=== PATIENT | female | born 1980 | race Hispanic/Latino ===

== ENCOUNTER 2023-03-07 06:11 | Day surgery (SDC) | payer OTHER ==
[2023-03-07] VITALS (10 sets, daily range): BP systolic 85–112; BP diastolic 38–65
[~2023-03-07] VITALS: Ht 157.5 cm; Wt 61.2 kg
[~2023-03-07 06:11] MED LIST: ACAR25TA2 PO; ESOM40CA54 PO; FAMO40TA7 PO; FLUT16H NASAL; GABA300S3 PO; LINA290C PO; LUBI24CA9 PO; MIDO10TA PO; MONT-39 PO; ONDA4TAB10 PO; PANT40TA54 PO; SCOP1PAT11 TD; SODIUM CHLORIDE PO; VITAMIN B12 SL
[2023-03-07] MEDS ORDERED: DEXTROSE 50%-WATER 50 ML DISP.SYRIN IV ONE (06:59)
[2023-03-07] MEDS ORDERED: 0.9%NACL 1000ML 1,000 ML IV ONE (06:59)
[2023-03-07] MEDS ORDERED: PROPOFOL 10 MG/ML 20ML VIAL IV ONE ×2 (07:26)
[2023-03-07] MEDS ORDERED: LIDOCAINE HCL 1% 20 ML VIAL ONE (07:28)
== END 2023-03-07 09:17 | disposition home or self-care (01) ==
LOC: DAH 06:11 → ENDO 06:11
PROVIDERS: ATTEND Surgery
DX: K30 Functional dyspepsia (principal); Z20.822 Contact with and (suspected) exposure to COVID-19; R11.2 Nausea with vomiting, unspecified; K21.9 Gastro-esophageal reflux disease without esophagitis; K22.89 Other specified disease of esophagus; K28.9 Gastrojejunal ulcer, unspecified as acute or chronic, without hemorrhage or perforation; G43.909 Migraine, unspecified, not intractable, without status migrainosus; Z86.010 Personal history of colon polyps; Z98.890 Other specified postprocedural states; Z90.710 Acquired absence of both cervix and uterus; Z90.49 Acquired absence of other specified parts of digestive tract; Z98.891 History of uterine scar from previous surgery; Z98.84 Bariatric surgery status; Z79.899 Other long term (current) drug therapy
CPT/HCPCS: 87426; 88305; 43239; J7030 ×2; J7070; J2704 ×2; A4620; A4215 ×2; A4223; A4657; A7002; A4222; A4221; A4663; A4216; A4606

== ENCOUNTER → 2023-07-12 | Outpatient (CLI) | payer OTHER ==
[~2023-07-12] MED LIST changes: +CARAL PO; +TOPI100T37 PO; +UBRO100T PO; +VITAMIN D2 PO
== END | disposition home or self-care (01) ==
LOC: SHCH 14:29
PROVIDERS: ATTEND Internal Medicine Cardiovascular Disease
DX: R06.02 Shortness of breath (principal)
CPT/HCPCS: 93306

== ENCOUNTER 2023-07-30 15:45 | Inpatient (IN) | payer OTHER ==
[~2023-07-30] VITALS: Ht 157.5 cm; Wt 54.5 kg
[2023-07-30 17:45] LABS: HEMATOCRIT 38.9 % (36-48); MEAN CORPUSCULAR HEMOGLOBIN 30.2 pg (27.0-33.0); MEAN CORPUSCULAR HGB CONC 33.2 g/dL (32.0-36.0); MEAN CORPUSCULAR VOLUME 91.1 fL (79-99); RED BLOOD CELL COUNT(AUTO) 4.27 MIL/uL (4.00-5.50); RED CELL DISTRIBUTION WIDTH 14.1 % (11.0-15.5); WHITE BLOOD COUNT (AUTO) 8.1 K/uL (4.8-10.8)
[2023-07-30 17:46] LABS: APPEARANCE,URINE CLEAR (CLEAR); BILIRUBIN,URINE NEGATIVE (NEGATIVE); COLOR,URINE YELLOW (YELLOW); GLUCOSE, URINE (UA) NEGATIVE (NEGATIVE); KETONES,URINE NEGATIVE (NEGATIVE); LEUKOCYTE ESTERASE ,URINE NEGATIVE Leu/uL (NEGATIVE); NITRATE,URINE NEGATIVE (NEGATIVE); OCCULT BLOOD,URINE NEGATIVE (NEGATIVE); PH,URINE 6.5 (5.0-8.0); PROTEIN,URINE 10 mg/dL (NEGATIVE); UROBILINOGEN,URINE 0.2 mg/dL (0.2-1.0)
[2023-07-30 17:48] LABS: ADD UA MICROSCOPIC YES
[2023-07-30 17:49] LABS: BACTERIA,URINE RARE /HPF (None Seen); MUCUS,URINE RARE LPF (None Seen); SQUAMOUS EPITHELIAL CELL,UR FEW /HPF (0-2); WBC,URINE 0-1 /HPF (0-1)
[2023-07-30] MEDS ORDERED: 0.9%NACL 1000ML 1,000 ML IV ONE (18:00)
[2023-07-30 18:01] LABS: ALBUMIN 3.9 g/dL (3.5-5.0); BILIRUBIN,TOTAL 0.2 mg/dL (0.2-1.0); CREATININE 0.8 mg/dL (0.5-1.5); POTASSIUM 3.4 mmol/L (3.5-5.1); TOTAL PROTEIN, SERUM 7.3 g/dL (6.0-8.3)
[2023-07-30 18:08] LABS: MAGNESIUM 2.3 mg/dL (1.80-2.40); THYROID STIMULATING HORMONE 1.59 uIU/mL (0.36-3.74)
[2023-07-30] MEDS ORDERED: ACETAMINOPHEN 325 MG TAB PO PRN ×2 (20:00)
[2023-07-30] MEDS ORDERED: ONDANSETRON 4MG INJ IV PRN (20:00)
[2023-07-30] MEDS ORDERED: LACTULOSE 20 GM/30 ML UDCUP PO PRN (20:00)
[2023-07-30] MEDS: 0.9%NACL 1000ML 1,000 ML IV SCH (20:39)
[2023-07-30] MEDS: MIDODRINE HCL 5 MG TABLET PO SCH (20:39)
[2023-07-30] MEDS: FAMOTIDINE 20MG TAB PO SCH (20:39)
[2023-07-30] MEDS ORDERED: CYAN-52 PO (22:42)
[2023-07-30] MEDS ORDERED: FLUT16H NASAL (22:42)
[2023-07-30] MEDS ORDERED: LIDO1ADH82 TP (22:42)
[2023-07-30] MEDS ORDERED: CELE100C97 PO (22:42)
[2023-07-30] MEDS ORDERED: RIME75TA PO (22:42)
[2023-07-30] MEDS ORDERED: VALA100031 PO (22:42)
[2023-07-30] MEDS ORDERED: PENNSAID (22:42)
[2023-07-30] MEDS ORDERED: SODI100037 PO (22:42)
[2023-07-30] MEDS ORDERED: FAMO40TA7 PO (22:42)
[2023-07-30 23:20] VITALS: BP 85/50; PULSE 55; RESP 14
[2023-07-30 23:30] VITALS: O2SAT 98
[2023-07-31] VITALS (8 sets, daily range): BP systolic 80–99; BP diastolic 49–66; PULSE 52–66; RESP 16–18; O2SAT 98
[2023-07-31] MEDS: 0.9%NACL 1000ML 1,000 ML IV SCH ×2 (05:57→17:27)
[2023-07-31] MEDS ORDERED: KCL 20 MEQ ERTAB PO ONE (07:30)
[2023-07-31 08:22] LABS: HEMATOCRIT 32.8 % (36-48); MEAN CORPUSCULAR HEMOGLOBIN 29.9 pg (27.0-33.0); MEAN CORPUSCULAR HGB CONC 33.2 g/dL (32.0-36.0); MEAN CORPUSCULAR VOLUME 90.1 fL (79-99); RED BLOOD CELL COUNT(AUTO) 3.64 MIL/uL (4.00-5.50); RED CELL DISTRIBUTION WIDTH 14.1 % (11.0-15.5); WHITE BLOOD COUNT (AUTO) 5.8 K/uL (4.8-10.8)
[2023-07-31 08:25] LABS: CREATININE 0.5 mg/dL (0.5-1.5); POTASSIUM 3.6 mmol/L (3.5-5.1)
[2023-07-31 08:30] LABS: ALBUMIN 3.1 g/dL (3.5-5.0); BILIRUBIN,TOTAL 0.2 mg/dL (0.2-1.0); TOTAL PROTEIN, SERUM 5.7 g/dL (6.0-8.3)
[2023-07-31] MEDS: FAMOTIDINE 20MG TAB PO SCH ×2 (08:36→21:11)
[2023-07-31] MEDS: MIDODRINE HCL 5 MG TABLET PO SCH ×3 (08:36→21:11)
[2023-07-31] MEDS ORDERED: IOHEXOL-350 50ML VIAL IV ONE (08:57)
[2023-07-31] MEDS ORDERED: IOHEXOL 350 MG/ML 100ML INFUS..BTL IV ONE (08:57)
[2023-07-31] MEDS: FLUDROCORTISONE ACETATE 0.1 MG TABLET PO SCH ×2 (11:13→21:00)
[2023-08-01 03:54] VITALS: BP 96/56; PULSE 53; RESP 17
[2023-08-01 04:19] VITALS: O2SAT 98
[2023-08-01 08:00] VITALS: BP 88/47; PULSE 61; RESP 18; O2SAT 100
[2023-08-01] MEDS: FLUDROCORTISONE ACETATE 0.1 MG TABLET PO SCH ×3 (09:00→14:04)
[2023-08-01] MEDS: 0.9%NACL 1000ML 1,000 ML IV SCH ×2 (09:07→12:00)
[2023-08-01] MEDS: MIDODRINE HCL 5 MG TABLET PO SCH ×2 (10:15→14:31)
[2023-08-01] MEDS: FAMOTIDINE 20MG TAB PO SCH (10:15)
[2023-08-01 10:46] LABS: BASOPHILS # (AUTO) 0.03 K/uL (0.00-0.20); BASOPHILS % (AUTO) 0.4 % (0.0-5.0); EOSINOPHILS % (AUTO) 1.4 % (0.0-8.0); HEMATOCRIT 33.4 % (36-48); IMMATURE GRANULOCYTE ABSOLUTE 0.02 K/uL (0-1); LYMPHOCYTES # (AUTO) 1.6 K/uL (1.0-4.8); LYMPHOCYTES % (AUTO) 21.8 % (21.0-51.0); MEAN CORPUSCULAR HEMOGLOBIN 30.5 pg (27.0-33.0); MEAN CORPUSCULAR HGB CONC 33.2 g/dL (32.0-36.0); MEAN CORPUSCULAR VOLUME 91.8 fL (79-99); MONOCYTES # (AUTO) 0.5 K/uL (0.1-1.0); MONOCYTES % (AUTO) 6.1 % (3.0-13.0); NEUTROPHILS # (AUTO) 5.1 K/uL (1.8-7.7); PLATELET COUNT (AUTO) 208 K/uL (130-400); RED BLOOD CELL COUNT(AUTO) 3.64 MIL/uL (4.00-5.50); RED CELL DISTRIBUTION WIDTH 13.9 % (11.0-15.5); WHITE BLOOD COUNT (AUTO) 7.3 K/uL (4.8-10.8)
[2023-08-01 10:58] LABS: ALBUMIN 3.2 g/dL (3.5-5.0); CREATININE 0.6 mg/dL (0.5-1.5); PHOSPHORUS 3.1 mg/dL (2.5-4.9); POTASSIUM 3.7 mmol/L (3.5-5.1)
[2023-08-01 11:04] LABS: % IRON SATURATION 33.8 % (22-44)
[2023-08-01 11:23] LABS: BILIRUBIN,TOTAL 0.2 mg/dL (0.2-1.0); MAGNESIUM 1.9 mg/dL (1.80-2.40)
[2023-08-01 11:45] VITALS: BP 89/51; PULSE 60; RESP 17
[2023-08-01] MEDS ORDERED: SUCRALFATE 1 GM PO SCH (13:00)
[2023-08-01] MEDS ORDERED: FLUD.1 PO (13:48)
[2023-08-01 16:00] VITALS: BP 95/61; PULSE 69; RESP 18
[2023-08-01] MEDS ORDERED: SODIUM CHLORIDE 1,000 MG TAB PO SCH (21:00)
[2023-08-02] MEDS ORDERED: CYANOCOBALAMIN (VITAMIN B-12) 1,000 MCG TABLET PO SCH (09:00)
== END 2023-08-01 17:10 | disposition home or self-care (01) | DRG 312 ==
LOC: EDH 15:45 → DIRECT 15:46 → 4BH 22:54
PROVIDERS: ADMIT Hospitalist; ATTEND Hospitalist
DX: I95.1 Orthostatic hypotension (principal); I10 Essential (primary) hypertension; E83.51 Hypocalcemia; E87.6 Hypokalemia; I73.9 Peripheral vascular disease, unspecified; Z79.899 Other long term (current) drug therapy; Z90.710 Acquired absence of both cervix and uterus; Z83.3 Family history of diabetes mellitus; Z98.84 Bariatric surgery status; Z88.8 Allergy status to other drugs, medicaments and biological substances; Z91.040 Latex allergy status
CPT/HCPCS: 36415; 75635; 80053; 80061; 81001; 82533; 82607; 82728; 82746; 83540; 83550; 83605; 83735; 84100; 84443; 84484; 85025; 85027; 85045; 93005; G0378; J7030; Q9967

== ENCOUNTER → 2023-10-16 | Outpatient (CLI) | payer OTHER ==
[~2023-10-16] MED LIST changes: +CYAN-52 PO; +DICY20TA3 PO; +ESOM40CA PO; -FAMO40TA7 PO; -FLUT16H NASAL; -GABA300S3 PO; +GLUC1VIA14 IJ; +LID5O TP; -LINA290C PO; -LUBI24CA9 PO; -MONT-39 PO; -SODIUM CHLORIDE PO; -UBRO100T PO; -VITAMIN B12 SL; -VITAMIN D2 PO; +[UNRECOGNIZED DRUG - OTHER] JT
[2023-10-16 11:30] LABS: BASOPHILS # (AUTO) 0.04 K/uL (0.00-0.20); BASOPHILS % (AUTO) 0.6 % (0.0-5.0); EOSINOPHILS % (AUTO) 2.9 % (0.0-8.0); HEMATOCRIT 31.5 % (36-48); IMMATURE GRANULOCYTE ABSOLUTE 0.03 K/uL (0-1); LYMPHOCYTES # (AUTO) 1.9 K/uL (1.0-4.8); LYMPHOCYTES % (AUTO) 27.1 % (21.0-51.0); MEAN CORPUSCULAR HEMOGLOBIN 29.7 pg (27.0-33.0); MEAN CORPUSCULAR HGB CONC 32.4 g/dL (32.0-36.0); MEAN CORPUSCULAR VOLUME 91.8 fL (79-99); MONOCYTES # (AUTO) 0.4 K/uL (0.1-1.0); MONOCYTES % (AUTO) 5.7 % (3.0-13.0); NEUTROPHILS # (AUTO) 4.4 K/uL (1.8-7.7); NEUTROPHILS % (AUTO) 63.3 % (40.0-77.0); PLATELET COUNT (AUTO) 394 K/uL (130-400); RED BLOOD CELL COUNT(AUTO) 3.43 MIL/uL (4.00-5.50); RED CELL DISTRIBUTION WIDTH 15.4 % (11.0-15.5)
[2023-10-16 12:24] LABS: ALBUMIN 3.2 g/dL (3.5-5.0); BILIRUBIN,TOTAL 0.3 mg/dL (0.2-1.0); CREATININE 0.6 mg/dL (0.5-1.5); POTASSIUM 3.7 mmol/L (3.5-5.1); THYROID STIMULATING HORMONE 1.2 uIU/mL (0.36-3.74); TOTAL PROTEIN, SERUM 6.7 g/dL (6.0-8.3)
== END | disposition home or self-care (01) ==
LOC: RAH 10:21
PROVIDERS: ATTEND Internal Medicine Gastroenterology
DX: E43 Unspecified severe protein-calorie malnutrition (principal); K91.1 Postgastric surgery syndromes; K28.3 Acute gastrojejunal ulcer without hemorrhage or perforation; R11.0 Nausea; Z98.84 Bariatric surgery status; Z79.899 Other long term (current) drug therapy
CPT/HCPCS: 36415; 74018; 80050; 80053; 80061; 82306; 82607; 82728; 82746; 83036; 83540; 83550; 84439; 84443; 84590; 85025

== ENCOUNTER 2023-10-18 06:36 | Day surgery (SDC) | payer OTHER ==
[~2023-10-18] VITALS: Ht 157.5 cm; Wt 54.4 kg
[2023-10-18] VITALS (17 sets, daily range): BP systolic 83–115; BP diastolic 41–69; PULSE 60–72; RESP 12–16
[~2023-10-18 06:36] MED LIST changes: -ESOM40CA54 PO
[2023-10-18] MEDS ORDERED: PROPOFOL 10 MG/ML 20ML VIAL IV ONE (07:29)
[2023-10-18] MEDS ORDERED: LIDOCAINE PF 100MG/5ML (2%) SYRINGE 5ML ONE (07:29)
[2023-10-18] MEDS ORDERED: SUCCINYLCHOLINE 200MG/10ML SYR ONE (07:29)
[2023-10-18] MEDS ORDERED: MIDAZOLAM HCL 1 MG/ML 2ML VIAL ONE (08:26)
[2023-10-18] MEDS ORDERED: FENTANYL CITRATE PF 50 MCG/1 ML 2ML VIAL ONE (08:28)
[2023-10-18] MEDS ORDERED: EPHEDRINE SULFATE 50 MG/ML AMPULE ONE (08:54)
== END 2023-10-18 10:25 | disposition home or self-care (01) ==
LOC: ENDO 06:36 → DAH 06:36 → ENDO 10:25
PROVIDERS: ATTEND Internal Medicine Gastroenterology
DX: R10.84 Generalized abdominal pain (principal); K22.89 Other specified disease of esophagus; K31.89 Other diseases of stomach and duodenum; E43 Unspecified severe protein-calorie malnutrition; R11.0 Nausea; K28.3 Acute gastrojejunal ulcer without hemorrhage or perforation; K91.1 Postgastric surgery syndromes; Z83.3 Family history of diabetes mellitus; Z80.1 Family history of malignant neoplasm of trachea, bronchus and lung; Z88.8 Allergy status to other drugs, medicaments and biological substances; Z87.891 Personal history of nicotine dependence; Z98.84 Bariatric surgery status; Z91.040 Latex allergy status; Z91.048 Other nonmedicinal substance allergy status; Z90.49 Acquired absence of other specified parts of digestive tract; Z90.710 Acquired absence of both cervix and uterus; Z98.891 History of uterine scar from previous surgery; Z98.890 Other specified postprocedural states
CPT/HCPCS: 82948 ×2; 43235; J3010; J0330; J2001; J3490; J2250; J2704; A4620; A4215 ×2; A4223; A7002; A4222; A4221; A4663; A4216; J7030; A4606

== ENCOUNTER 2024-07-10 05:45 | Day surgery (SDC) | payer OTHER ==
[2024-07-10] VITALS (12 sets, daily range): BP systolic 88–104; BP diastolic 55–64; PULSE 57–66; RESP 16
[~2024-07-10] VITALS: Ht 157.5 cm; Wt 54.0 kg
[~2024-07-10 05:45] MED LIST changes: +0.9%NACL 1000ML 0 ML IV ONE; +ONDA-243 PO; -ONDA4TAB10 PO
[2024-07-10] MEDS ORDERED: FAMO40TA7 PO (06:51)
[2024-07-10] MEDS ORDERED: MIDODRINE PO (06:51)
[2024-07-10] MEDS ORDERED: AMYL1CAP61 PO (06:51)
[2024-07-10] MEDS ORDERED: ACAR100T2 PO (06:52)
[2024-07-10] MEDS: 0.9%NACL 1000ML 1,000 ML IV ONE (06:59)
[2024-07-10] MEDS ORDERED: LIDOCAINE PF 100MG/5ML (2%) SYRINGE 5ML ONE (07:33)
[2024-07-10] MEDS ORDERED: PHENYLEPHRINE HCL 10 MG/ML 1ML VIAL IV ONE (07:33)
[2024-07-10] MEDS ORDERED: proPOFol 10 MG/ML 20ML VIAL IV ONE (07:33)
[2024-07-10] MEDS ORDERED: ONDANSETRON 4MG INJ ONE (07:58)
[2024-07-10] MEDS ORDERED: dexaMETHasone SOD PHOSPHATE 10MG/ML 1ML VIAL ONE (07:58)
== END 2024-07-10 09:10 | disposition home or self-care (01) ==
LOC: ENDO 05:45 → DAH 05:45 → ENDO 09:10
PROVIDERS: ATTEND Surgery
DX: R10.13 Epigastric pain (principal); K22.89 Other specified disease of esophagus; E43 Unspecified severe protein-calorie malnutrition; K28.3 Acute gastrojejunal ulcer without hemorrhage or perforation; K21.9 Gastro-esophageal reflux disease without esophagitis; G43.909 Migraine, unspecified, not intractable, without status migrainosus; Z98.0 Intestinal bypass and anastomosis status; Z91.040 Latex allergy status; Z90.49 Acquired absence of other specified parts of digestive tract; Z90.710 Acquired absence of both cervix and uterus; Z98.84 Bariatric surgery status; Z88.1 Allergy status to other antibiotic agents; Z88.8 Allergy status to other drugs, medicaments and biological substances
CPT/HCPCS: 43235; J1100; J7030 ×2; J2001; J2704; J2405; J2371; A4620; A4215 ×2; A4223; A4657; A4222; A4221; A4663; A4606; J3490

== ENCOUNTER → 2024-07-18 | Outpatient (CLI) | payer OTHER ==
[~2024-07-18] MED LIST changes: -0.9%NACL 1000ML 0 ML IV ONE; +ACAR100T2 PO; -ACAR25TA2 PO; +AMYL1CAP61 PO; -CYAN-52 PO; -DICY20TA3 PO; -ESOM40CA PO; +FAMO40TA7 PO; -GLUC1VIA14 IJ; -LID5O TP; -MIDO10TA PO; +MIDODRINE PO; -SCOP1PAT11 TD; -TOPI100T37 PO; -[UNRECOGNIZED DRUG - OTHER] JT
== END | disposition home or self-care (01) ==
LOC: RAH 16:56
PROVIDERS: ATTEND Surgery
DX: M79.621 Pain in right upper arm (principal)
CPT/HCPCS: 93970

== ENCOUNTER 2024-07-23 16:00 | Inpatient (IN) | payer OTHER ==
[~2024-07-23] VITALS: Ht 157.5 cm; Wt 56.2 kg
[2024-07-23 14:43] LABS: BASOPHILS # (AUTO) 0.04 K/uL (0.00-0.20); BASOPHILS % (AUTO) 0.4 % (0.0-5.0); EOSINOPHILS # (AUTO) 0.12 K/uL (0.00-0.70); EOSINOPHILS % (AUTO) 1.2 % (0.0-8.0); HEMATOCRIT 32.2 % (36-48); IMMATURE GRANULOCYTE ABSOLUTE 0.03 K/uL (0-1); LYMPHOCYTES # (AUTO) 2.8 K/uL (1.0-4.8); LYMPHOCYTES % (AUTO) 28.7 % (21.0-51.0); MEAN CORPUSCULAR HEMOGLOBIN 25.9 pg (27.0-33.0); MEAN CORPUSCULAR VOLUME 80.9 fL (79-99); MONOCYTES # (AUTO) 0.5 K/uL (0.1-1.0); MONOCYTES % (AUTO) 5.2 % (3.0-13.0); NEUTROPHILS # (AUTO) 6.3 K/uL (1.8-7.7); NEUTROPHILS % (AUTO) 64.2 % (40.0-77.0); PLATELET COUNT (AUTO) 328 K/uL (130-400); RED BLOOD CELL COUNT(AUTO) 3.98 MIL/uL (4.00-5.50); RED CELL DISTRIBUTION WIDTH 17.2 % (11.0-15.5); WHITE BLOOD COUNT (AUTO) 9.8 K/uL (4.8-10.8)
[2024-07-23 15:03] LABS: INR 0.98 (0.85-1.15); PROTHROMBIN TIME 10.6 SEC (9.6-11.6)
[2024-07-23 15:04] LABS: PARTIAL THROMBOPLASTIN TIME 26.4 SEC (26.3-35.5)
[2024-07-23 15:09] LABS: ALBUMIN 3.8 g/dL (3.5-5.0); BILIRUBIN,TOTAL 0.3 mg/dL (0.2-1.0); CREATININE 0.7 mg/dL (0.5-1.0); POTASSIUM 3.7 mmol/L (3.5-5.1); TOTAL PROTEIN, SERUM 7.4 g/dL (6.0-8.3)
[2024-07-23 15:25] VITALS: BP 103/55; PULSE 62; RESP 18; TEMP 98.4
[~2024-07-23 16:00] MED LIST changes: +LIDO15CR11 TP; +NACL1 PO; +SCOP1PAT11 TD
[2024-07-24] VITALS (12 sets, daily range): BP systolic 97–129; BP diastolic 52–75; PULSE 62–67; RESP 14–16; TEMP 97.3–98.2
[2024-07-24] MEDS: metRONIDazole 500MG/100ML BAG 0 ML ONE (13:21)
[2024-07-24] MEDS: ceFAZolin SODIUM 2 GM VIAL ONE (13:21)
[2024-07-24] MEDS: DEXTROSE 50%-WATER 50 ML DISP.SYRIN IV ONE (14:15)
[2024-07-24] MEDS: FAMOTIDINE 20MG VIAL IV ONE (14:15)
[2024-07-24] MEDS: ONDANSETRON 4MG INJ ONE (19:14)
[2024-07-24] MEDS: SCOPOLAMINE HYDROBROMIDE 1 EACH ADH..PATCH TD ONE (19:14)
[2024-07-24] MEDS: acetaMINOPHEN 1,000 MG/100 ML VIAL IV ONE (19:14)
[2024-07-24] MEDS: LACTATED RINGERS 1000ML 1,000 ML IV ONE (19:15)
[2024-07-24] MEDS ORDERED: dexaMETHasone SOD PHOSPHATE 10MG/ML 1ML VIAL ONE (19:35)
[2024-07-24] MEDS ORDERED: LIDOCAINE HCL MPF 1% 5ML VIAL ONE (19:35)
[2024-07-24] MEDS ORDERED: NEOSTIGMINE METHYLSULFATE 1MG/ML IV ONE (19:36)
[2024-07-24] MEDS ORDERED: rocuRONium bROMide 10MG/1ML 5ML VL ONE (19:36)
[2024-07-24] MEDS ORDERED: ONDANSETRON 4MG INJ ONE (19:36)
[2024-07-24] MEDS ORDERED: proPOFol 10 MG/ML 20ML VIAL IV ONE (19:36)
[2024-07-24] MEDS ORDERED: GLYCOPYRROLATE 0.2 MG/ML 5 ML VIAL ONE ×2 (19:36→22:47)
[2024-07-24] MEDS ORDERED: MIDAZOLAM HCL 1 MG/ML 2ML VIAL ONE (19:36)
[2024-07-24] MEDS ORDERED: FENTanyl CITRate PF 50 MCG/1 ML 5ML AMP IV ONE (19:37)
[2024-07-24] MEDS ORDERED: PHENYLEPHRINE HCL 10 MG/ML 1ML VIAL IV ONE (21:06)
[2024-07-24] MEDS: BUPIvacaine/PF 0.5% 30ML VIAL ONE (21:19)
[2024-07-24] MEDS: CLINDAMYCIN IVPB 600MG/50ML 50 ML IV ONE (21:20)
[2024-07-24] MEDS ORDERED: morPHINE 4 MG SYG IVP PRN (23:30)
[2024-07-24] MEDS ORDERED: ONDANSETRON 4MG INJ IVP PRN (23:30)
[2024-07-24] MEDS ORDERED: PROCHLORPERAZINE 10MG/2ML INJ IV PRN (23:30)
[2024-07-25] VITALS (15 sets, daily range): BP systolic 94–130; BP diastolic 53–69; PULSE 52–68; RESP 13–19; TEMP 98.1–98.6; O2SAT 97
[2024-07-25] MEDS: ketOROlac 30MG VIAL (30MG/ML) IV PRN (00:50)
[2024-07-25] MEDS: TPN IJ SCH (01:14)
[2024-07-25] MEDS: ENOXAPARIN SODIUM 30 MG/0.3 ML SQ SCH (01:17)
[2024-07-25] MEDS: HYDROcod/acetaMINOPHEN 7.5/325 MG 15 ML UDCUP PO PRN (05:37)
== END 2024-07-25 18:55 | disposition home or self-care (01) | DRG 329 ==
LOC: DAHIP 07-24 11:48 → 3CH 07-24 23:40
PROVIDERS: ADMIT Surgery; ATTEND Surgery
PROC: 8E0W4CZ Robotic Assisted Procedure of Trunk Region, Percutaneous Endoscopic Approach (ICD-10-PCS; 2024-07-24)
PROC: 0DJ08ZZ Inspection of Upper Intestinal Tract, Via Natural or Artificial Opening Endoscopic (ICD-10-PCS; principal; 2024-07-24 20:43)
PROC: 0DB84ZZ Excision of Small Intestine, Percutaneous Endoscopic Approach (ICD-10-PCS; 2024-07-24 20:43)
DX: K28.3 Acute gastrojejunal ulcer without hemorrhage or perforation (principal); E43 Unspecified severe protein-calorie malnutrition; K31.84 Gastroparesis; Z98.84 Bariatric surgery status; Z87.11 Personal history of peptic ulcer disease; Z68.22 Body mass index [BMI] 22.0-22.9, adult
CPT/HCPCS: 36415; 43235; 71045; 80053; 82306; 82607; 82948; 84207; 84703; 85025; 85610; 85730; 86850; 86900; 86901; 88307; 93005; G0378; J1100; J1650; J1885; J2250; J2371; J2405; J2704; J2710; J3010; J3490; J7030; J7070; J7120; A4215; A4216; A4222; A4223; A4600; A4663; A4930; A6260; J0665; J0690

== ENCOUNTER 2024-10-24 23:58 | Emergency (ER) | payer OTHER ==
[~2024-10-24] VITALS: Ht 157.5 cm; Wt 54.4 kg
[~2024-10-24 23:58] MED LIST changes: -LIDO15CR11 TP; +LIDO15CR15 TP
[2024-10-25] VITALS: BP 103/70; PULSE 77; RESP 11; TEMP 97.4
[2024-10-25 02:22] LABS: BASOPHILS # (AUTO) 0.05 K/uL (0.00-0.20); BASOPHILS % (AUTO) 0.4 % (0.0-5.0); EOSINOPHILS # (AUTO) 0.27 K/uL (0.00-0.70); EOSINOPHILS % (AUTO) 2.3 % (0.0-8.0); HEMATOCRIT 32.3 % (36-48); IMMATURE GRANULOCYTE ABSOLUTE 0.05 K/uL (0-1); LYMPHOCYTES # (AUTO) 3.3 K/uL (1.0-4.8); LYMPHOCYTES % (AUTO) 28.3 % (21.0-51.0); MEAN CORPUSCULAR HEMOGLOBIN 24.9 pg (27.0-33.0); MEAN CORPUSCULAR HGB CONC 31.9 g/dL (32.0-36.0); MONOCYTES # (AUTO) 0.9 K/uL (0.1-1.0); MONOCYTES % (AUTO) 7.3 % (3.0-13.0); NEUTROPHILS # (AUTO) 7.2 K/uL (1.8-7.7); NEUTROPHILS % (AUTO) 61.3 % (40.0-77.0); PLATELET COUNT (AUTO) 356 K/uL (130-400); RED BLOOD CELL COUNT(AUTO) 4.14 MIL/uL (4.00-5.50); WHITE BLOOD COUNT (AUTO) 11.7 K/uL (4.8-10.8)
[2024-10-25 02:32] LABS: CREATININE 0.8 mg/dL (0.5-1.0); POTASSIUM 3.4 mmol/L (3.5-5.1)
[2024-10-25] MEDS: FAMOTIDINE 20MG VIAL IV ONE (02:32)
[2024-10-25] MEDS: ketOROlac 15MG/ML VIAL (15MG/ML) IV ONE (02:32)
[2024-10-25] MEDS: ondanSETRON 4MG INJ IVP ONE (02:33)
[2024-10-25 02:37] LABS: ALBUMIN 3.8 g/dL (3.5-5.0); BILIRUBIN,DIRECT 0.1 mg/dL (0.0-0.3); BILIRUBIN,TOTAL 0.2 mg/dL (0.2-1.0); TOTAL PROTEIN, SERUM 7.6 g/dL (6.0-8.3)
[2024-10-25] MEDS: 0.9%NACL 1000ML 1,000 ML IV ONE (02:40)
[2024-10-25 02:43] LABS: APPEARANCE,URINE CLEAR (CLEAR); BILIRUBIN,URINE NEGATIVE (NEGATIVE); COLOR,URINE LIGHT-YELLOW (YELLOW); GLUCOSE, URINE (UA) NEGATIVE (NEGATIVE); KETONES,URINE 10 mg/dL (NEGATIVE); LEUKOCYTE ESTERASE ,URINE NEGATIVE Leu/uL (NEGATIVE); NITRATE,URINE NEGATIVE (NEGATIVE); OCCULT BLOOD,URINE NEGATIVE (NEGATIVE); PH,URINE 6.5 (5.0-8.0); PROTEIN,URINE NEGATIVE (NEGATIVE); UROBILINOGEN,URINE 0.2 mg/dL (0.2-1.0)
[2024-10-25 02:44] LABS: ADD UA MICROSCOPIC YES
[2024-10-25 02:45] LABS: MUCUS,URINE RARE LPF (None Seen); RBC,URINE 0-1 /HPF (0-1); SQUAMOUS EPITHELIAL CELL,UR RARE /HPF (0-2); WBC,URINE 0-1 /HPF (0-1)
[2024-10-25] MEDS ORDERED: IOHEXOL-350 75 ML VIAL IV ONE (02:45)
[2024-10-25 03:07] LABS: PLATELET MORPHOLOGY LARGE PLTS PRESENT
--- NOTE | 2024-10-25 03:36 | ERN ---
General Chief Complaint: Abdominal Pain Stated Complaint: ABDOMINAL PAIN Time Seen by MD: 00:12 Time Seen by Midlevel: 00:12 Source: patient History of Present Illness Initial Comments Patient is a 44-year-old female with a past medical history of pancreatitis and small-bowel obstructions presenting to the emergency department with midepigastric/left quadrant abdominal pain that started four days ago and has progressively worsened. She reports associated nausea and vomiting with last reported episode of vomiting occurring prior to arrival. She denies any fever, chills or any other symptoms at this time. Allergies: Coded Allergies: eletriptan (Unverified Allergy, Unknown, 03/06/23) latex (Unverified Allergy, Unknown, 03/06/23) metronidazole (Unverified Allergy, Unknown, 03/06/23) sumatriptan (Unverified Allergy, Unknown, 10/17/23) Uncoded Allergies: DERMABOND (Allergy, Unknown, 03/06/23) Home Meds Reported Medications Sodium Chloride (NaCl) 1,000 Mg Tab, 1 GM PO QID, TAB 07/23/24 Lidocaine (Lidocaine) 5 % Cream..g., 1 APPLIC TP QID APPLY TO ABDOMEN 07/23/24 Scopolamine (Transderm-Scop) 1 Mg/3 Day Patch.td.3, 1 EACH TD QODAY 07/23/24 Acarbose (Acarbose) 100 Mg Tablet, 100 MG PO TID, TAB 07/10/24 Famotidine (Famotidine) 40 Mg Tablet, 40 MG PO BID, TAB 07/10/24 [Midodrine] No Conflict Check, 20 MG PO TID 07/10/24 Lipase/Protease/Amylase (Creon) 12K-38K-60 Drcap, 1 CAP PO TID, CAP 07/10/24 Sucralfate (Carafate Susp) 1 Gram/10 Ml Susp, 1 GM PO QID, ML 06/06/23 Ondansetron (Ondansetron Odt) 4 Mg Tab.rapdis, 4 MG PO TID PRN for NAUSEA/VOMITING, TAB 03/06/23 Pantoprazole Sodium (Pantoprazole Sodium) 40 Mg Tablet.dr, 40 MG PO BID, TAB 03/06/23 Past Medical History Past Medical History: GERD, Hypotension, Migraines Medical History Other: HYPOGLYCEMIA Past Surgical History: Appendectomy, Hysterectomy, Cholecystectomy, Bariatric Surgery, Surgical History Other: CRANIOTOMY Social History Social History: Negative, Lives with family ROS Dictation CONSTITUTIONAL: Negative except for HPI HEAD/FACE: Negative except for HPI EENT: Negative except for HPI RESPIRATORY: Negative except for HPI GASTROINTESTINAL/ABDOMINAL: Negative except for HPI GENITOURINARY: Negative except for HPI MUSCULOSKELETAL: Negative except for HPI INTEGUMENTARY: Negative except for HPI NEUROLOGICAL/PSYCH: Negative except for HPI HEMATOLOGIC/LYMPHATIC: Negative except for HPI All Systems Negative, Except as noted above. 13 point review of systems assessed and all negative except for above. Physical Exam Physical Exam Dictation Vital Signs reviewed General Appearance: Alert, oriented x 3, no acute distress, well developed, nourished. Head and Face: non-traumatic. Eyes: PERRL, pink conjunctivas, eyelid no trauma, anterior chamber with arcus senilis. Ears: Pinnas intact and no signs of trauma or erythema ear canals clear and no discharge TM no erythema Nose: No discharge, no bleeding. Oropharynx: Mouth normal, tongue pink, pharynx clear,no erythema, tonsils no exudates, no abscesses noted, mucous membrane moist Neck: Supple, non-tender, no thyromegaly, no masses, no JVD, no bruits Breast:Deferred Chest:No tenderness, no crepitus, no paradoxical movement, no retractions Lungs:Clear, well-ventilated, symmetric, no rales, no wheezing, no rhonchi, no stridor, good breath sounds bilaterally Heart: Regular rate, regular rhythm, no murmur, no gallops Vascular: no peripheral edema, Abdomen: Soft, positive bowel sounds, nondistended, no guarding, Diffuse abdominal tenderness, no rebound, no masses no hepatomegaly, no splenomegaly, no Jeffery's sign, no hernias. Rectal: Deferred Genital: Deferred Neurological: Normal speech, motor function intact, sensory function intact Musculoskeletal: Neck nontender, full range of motion, back nontender, full range of motion, Extremities: nontender, full range of motion Skin: Color pink, dry, no turgor, no rash, no lacerations, no abrasions, no contusions. Lymphatic: Deferred Results Laboratory and Microbiology Lab and Micro Result Laboratory Tests Test 10/25/24 02:14 10/25/24 02:28 White Blood Count 11.7 K/uL (4.8-10.8) H Red Blood Count 4.14 MIL/uL (4.00-5.50) Hemoglobin 10.3 g/dL (12.0-16.0) L Hematocrit 32.3 % (36-48) L Mean Corpuscular Volume 78.0 fL (79-99) L Mean Corpuscular Hemoglobin 24.9 pg (27.0-33.0) L Mean Corpuscular Hemoglobin Concent 31.9 g/dL (32.0-36.0) L Red Cell Distribution Width 16.0 % (11.0-15.5) H Platelet Count 356 K/uL (130-400) Mean Platelet Volume 10.5 fL (7.5-10.5) Immature Granulocyte % (Auto) 0.4 % (0-1) Neutrophils (%) (Auto) 61.3 % (40.0-77.0) Lymphocytes (%) (Auto) 28.3 % (21.0-51.0) Monocytes (%) (Auto) 7.3 % (3.0-13.0) Eosinophils (%) (Auto) 2.3 % (0.0-8.0) Basophils (%) (Auto) 0.4 % (0.0-5.0) Neutrophils # (Auto) 7.2 K/uL (1.8-7.7) Lymphocytes # (Auto) 3.3 K/uL (1.0-4.8) Monocytes # (Auto) 0.9 K/uL (0.1-1.0) Eosinophils # (Auto) 0.27 K/uL (0.00-0.70) Basophils # (Auto) 0.05 K/uL (0.00-0.20) Absolute Immature Granulocyte (auto 0.05 K/uL (0-1) Nucleated Red Blood Cells 0.0 % (0.0-0.19) Platelet Morphology LARGE PLTS PRESENT Red Blood Cell Morphology ANISO 1+ Sodium Level 138 mmol/L (136-145) Potassium Level 3.4 mmol/L (3.5-5.1) L Chloride Level 106 mmol/L (101-111) Carbon Dioxide Level 26 mmol/L (21-32) Blood Urea Nitrogen 13 mg/dL (7-18) Creatinine 0.8 mg/dL (0.5-1.0) Glomerular Filtration Rate Calc 93 mL/min (>90) Random Glucose 94 mg/dL (70-105) Total Calcium 8.9 mg/dL (8.5-10.1) Total Bilirubin 0.2 mg/dL (0.2-1.0) Direct Bilirubin 0.1 mg/dL (0.0-0.3) Aspartate Amino Transf (AST/SGOT) 14 U/L (10-37) Alanine Aminotransferase (ALT/SGPT) 21 U/L (12-78) Alkaline Phosphatase 92 U/L (50-136) Total Protein 7.6 g/dL (6.0-8.3) Albumin 3.8 g/dL (3.5-5.0) Lipase 79 U/L (16-77) H Serum Test, Qualitative NEGATIVE (NEGATIVE) Urine Color LIGHT-YELLOW (YELLOW) Urine Appearance CLEAR (CLEAR) Urine pH 6.5 (5.0-8.0) Urine Specific Allen 1.013 (1.001-1.031) Urine Protein NEGATIVE mg/dL (NEGATIVE) Urine Glucose (UA) NEGATIVE mg/dL (NEGATIVE) Urine Ketones 10 mg/dL (NEGATIVE) H Urine Occult Blood NEGATIVE (NEGATIVE) Urine Nitrate NEGATIVE (NEGATIVE) Urine Bilirubin NEGATIVE mg/dL (NEGATIVE) Urine Urobilinogen 0.2 mg/dL (0.2-1.0) Urine Leukocyte Esterase NEGATIVE Christina/uL Urine RBC 0-1 /HPF (0-1) Urine WBC 0-1 /HPF (0-1) Urine Squamous Epithelial Cells RARE /HPF (0-2) Urine Bacteria None /HPF (None Seen) Labs Reviewed?: Yes MDM MDM: Differential diagnosis: Pancreatitis, small-bowel obstruction, paralytic ileus Rationale: Tests considered and ordered secondary to shared decision making include: Previous outside records reviewed: Old ER visits. Risk of complication and/or morbidity or mortality of patient management: None Medications-Per medication reconciliation Need for hospitalization: Patient does meet criteria for hospitalization. Need for emergency major/minor surgery: No There are no social concerns with this patient. Prescription drug management Prescriptions will include symptomatic care Patient's prior external medical records from other ER visits were reviewed by me as indicated. Prior testing and results from previous visits were reviewed. Prior tests were taken into account with medical decision making and resource utilization, independent historian/historians were used to obtain complete medical history. I independently interpreted the test that were performed, results were reviewed by me and considered findings on radiology if ordered. Medical management and examination interpretation discussions were had by me with other qualified healthcare professionals as indicated for the patient's care. ED Course Orders Procedure Category Date Status Time Cbc With Differential LAB 10/25/24 Complete 00:17 Basic Metabolic Panel LAB 10/25/24 Complete 00:17 Testing, LAB 10/25/24 Complete Serum Hcg 00:17 Hepatic Function Panel LAB 10/25/24 Complete 00:17 Lipase LAB 10/25/24 Complete 00:17 Urinalysis Profile LAB 10/25/24 Complete 00:17 Ondansetron 4mg Inj PHA 10/25/24 Complete (Zofran 4mg Inj) 02:00 Famotidine 20mg Vial PHA 10/25/24 Complete (Pepcid 20mg Vial) 02:00 Ketorolac PHA 10/25/24 Complete Tromethamine 15mg/Ml 02:00 0.9%Nacl 1000ml (Ns PHA 10/25/24 Complete 1000ml) 02:00 Ct Abdomen/Pelvis CT 10/25/24 Taken W/Contrast 01:47 Iohexol (Omnipaque) PHA 10/25/24 Complete 02:45 Current Medications Medications (Trade) Dose Ordered Sig/Teofilo Route PRN Reason Start Time Stop Time Status Last Admin Dose Admin Famotidine (Pepcid 20mg Vial) 20 mg ONCE ONCE IV 10/25/24 02:00 10/25/24 02:01 DC 10/25/24 02:32 Iohexol (Omnipaque) 75 ml STK-MED ONCE IV 10/25/24 02:45 10/25/24 02:45 DC Ketorolac Tromethamine (toRADol) 15 mg ONCE ONCE IV 10/25/24 02:00 10/25/24 02:01 DC 10/25/24 02:32 Ondansetron HCl (zoFRAN 4MG INJ) 4 mg ONCE ONCE IVP 10/25/24 02:00 10/25/24 02:01 DC 10/25/24 02:33 Sodium Chloride 1,000 ml @ 0 mls/hr ONCE ONCE IV 10/25/24 02:00 10/25/24 02:01 DC 10/25/24 02:40 Vital Signs Date Time Temp Pulse Resp B/P (MAP) Pulse Ox O2 Delivery O2 Flow Rate FiO2 10/25/24 00:00 97.3 77 11 103/70 100 Room Air [address] abdomen and pelvis with contrast. Preliminary findings. There are postoperative changes involving the bowel. The colon is distending containing air and stool. There are some mildly distended loops of small bowel containing fluid and air. Some of these demonstrate wall thickening. This may be related to an ileus. Can not exclude a nonspecific enteritis. No bowel obstruction is identified. Patient is status post cholecystectomy. No evidence of renal calculi or hydronephrosis. A 9 mm lucency in the right lobe of the liver may represent a cyst. DX & DISP Disposition: Inpatient Decision to Admit Date: Oct 25, 2024 Decision to Admit Time: 04:18 Departure Impression: Primary Impression: Ileus Additional Impression: Leukocytosis Condition: Stable Referrals: JACE ALFORD (PCP) Time of Disposition: 04:18 I have reviewed the case, and I agree with, Diagnosis and Plan I performed the substantive portion of the visit. I have reviewed and personally made and approve the management plan that is documented in the note by myself or the MENG. I acknowledge for responsibility for the patient's management plan. ARIC ARMAS Oct 25, 2024 03:36
--- NOTE | 2024-10-25 05:29 | NUR ---
PT UPSET, YELLING AT STAFF BECAUSE NO ONE HAD TOLD THEM SHE WAS GETTING ADMITTED OR UPDATED THEM ON ANY LAB RESULTS. PT WANTING TO SPEAK TO REGULATORY COMPLIANCE OFFICER OR ED DIRECTOR. EXPLAINED TO PT AND FAMILY THAT ED DIRECTOR ISNT AVAILABLE AT THIS TIME. PT RECEIVED DIRECTOR'S CARD, TOLD PT AND FAMILY THEY CAN CALL DIRECTOR FOR ANY COMPLAINTS. PT REQUESTING TO LEAVE AMA. EXPLAINED TO PT AND FAMILY MEMBER THE RISKS OF LEAVING AMA. PT SIGNED AMA FORM.
--- NOTE | 2024-10-25 08:24 | HMCIMG ---
CT ABDOMEN WITH CONTRAST. CT PELVIS WITH CONTRAST INDICATION: History of pancreatitis/small bowel obstruction, mid epigastric abdominal pain with nausea TECHNIQUE: Routine transaxial images using 5 mm slice thickness were obtained after the intravenous infusion of 75 mL of Omnipaque 350 without adverse effects. Oral contrast was not administered. Rectal contrast was not administered. Coronal and sagittal reformatted images acquired for interpretation. CT was performed with one or more of the following dose reduction techniques: Automated exposure control, adjustment of the mA and/or kV according to patient size, or use of iterative reconstruction technique. COMPARISON: None FINDINGS: ABDOMEN: Heart size is normal. Visible lung bases are clear. Gastric bypass surgery changes. The liver is normal in size and smooth in contour without lesions or biliary duct dilation. 9 mm low attenuating lesion within the posterior superior right hepatic lobe may represent a simple cyst, but is too small to characterize at this juncture. The spleen is normal in size without lesions. The gallbladder is absent. The pancreas appears normal without pancreatic duct dilation. The adrenal glands appear normal. Both kidneys appear unremarkable. Cortical nephrograms are symmetric and normal in appearance bilaterally. No evidence for intra-abdominal free air or organized fluid collection. No retrocrural, intraabdominal, or retroperitoneal lymphadenopathy identified. No aortic aneurysmal dilation or dissection identified. PELVIS: No evidence for free air or organized pelvic fluid collection. No significant pelvic adenopathy detected. Moderate stool burden. Fluid-filled nondilated small bowel loops. Terminal ileum appears normal. The appendix it is not well-visualized. The urinary bladder appears unremarkable. Uterus is absent. Multiple pelvic phleboliths. Visible osseous structures are intact. IMPRESSION: No evidence for any acute intra-abdominal or pelvic process. Additional minor findings and pertinent negatives as reported.
== END 2024-10-25 05:49 | disposition left against medical advice (07) ==
LOC: EDH 23:58
DX: K56.7 Ileus, unspecified (principal); D72.829 Elevated white blood cell count, unspecified; K21.9 Gastro-esophageal reflux disease without esophagitis; G43.909 Migraine, unspecified, not intractable, without status migrainosus; Z88.1 Allergy status to other antibiotic agents; Z90.49 Acquired absence of other specified parts of digestive tract; Z90.710 Acquired absence of both cervix and uterus; Z98.890 Other specified postprocedural states
CPT/HCPCS: 99285; 80076; 80048; 84703; 83690; 85025; 81001; 36415; 74177; 96374; 96375; 96361; J3490; J7030; J2405; J1885; Q9967

== ENCOUNTER 2025-09-24 07:01 | Day surgery (SDC) | payer OTHER ==
[~2025-09-24] VITALS: Ht 157.5 cm; Wt 59.9 kg
[2025-09-24] VITALS (10 sets, daily range): BP systolic 94–101; BP diastolic 52–63; PULSE 65–78; RESP 15–18; TEMP 97.3–97.9
[~2025-09-24 07:01] MED LIST changes: +0.9%NACL 1000ML 1,000 ML IV ONE
[2025-09-24] MEDS ORDERED: ONDA-105 PO (07:27)
[2025-09-24] MEDS ORDERED: DROX100C2 PO (07:30)
[2025-09-24] MEDS ORDERED: LIDOCAINE PF 100MG/5ML (2%) SYRINGE 5ML ONE (07:37)
[2025-09-24] MEDS ORDERED: GLYCOPYRROLATE 0.2 MG/ML 5 ML VIAL ONE (07:37)
== END 2025-09-24 10:30 | disposition home or self-care (01) ==
LOC: ENDO 07:01 → DAH 07:01 → ENDO 10:30
PROVIDERS: ATTEND Surgery
DX: R10.13 Epigastric pain (principal); K28.9 Gastrojejunal ulcer, unspecified as acute or chronic, without hemorrhage or perforation; K22.89 Other specified disease of esophagus; K31.89 Other diseases of stomach and duodenum; R13.10 Dysphagia, unspecified; K21.9 Gastro-esophageal reflux disease without esophagitis; Z91.040 Latex allergy status; D59.9 Acquired hemolytic anemia, unspecified; G43.909 Migraine, unspecified, not intractable, without status migrainosus; Z90.49 Acquired absence of other specified parts of digestive tract; Z98.84 Bariatric surgery status; Z88.8 Allergy status to other drugs, medicaments and biological substances; Z96.82 Presence of neurostimulator; Z90.710 Acquired absence of both cervix and uterus; Z98.890 Other specified postprocedural states; Z79.899 Other long term (current) drug therapy
CPT/HCPCS: 43239; J7030; J2003; J2704 ×2; J3490; A4620; A4215